=== PATIENT | female | born 1935 | race Caucasian/White ===

== ENCOUNTER 2020-05-27 09:27 | Observation (INO) | payer MEDICARE, BC ==
[2020-05-27] MEDS ORDERED: Furosemide 40 MG/4 ML VIAL IV ONE ×2 (09:48→16:41)
--- NOTE | 2020-05-27 10:11 | EDM.PDOC ---
ED HPI GENERAL MEDICAL PROBLEM - General Time Seen by Provider: 05/27/20 09:45 Source of Information: Reports: Patient History Limitations: Reports: No Limitations - History of Present Illness INITIAL COMMENTS - FREE TEXT/NARRATIVE: Pt. presents to ER with complaints of increased peripheral edema for the past week. Pt. has a history of CAD and chronic systolic CHF, dilated cardiomyopathy, and a-fib. She has a pacemaker/AICD. Pt. states that she was very active last week, doing a lot of doctoring including a lung biopsy last week. She states that she has been having troubles getting he shoes and socks on for about a week. Pt. states that she is chronically short of breath, a bit more than normal. Her primary complaint is swelling in her feet and ankles. Pt. denies any chest pain, palpitations, fever, chills, lightheadedness, weakness, nausea, vomiting or diarrhea. She currently takes furosemide 20mg PO daily. Onset: Today Onset Date: 05/22/20 Location: Reports: Chest, Lower Extremity, Left, Lower Extremity, Right, Generalized Bilateral Feet Pain Score (Numeric/FACES): 5 - Related Data Allergies Allergy/AdvReac Type Severity Reaction Status Date / Time atorvastatin calcium Allergy Itching Verified 05/27/20 10:08 [From Lipitor] Penicillins Allergy Itching Verified 05/27/20 10:08 Home Meds: Home Meds Rosuvastatin Calcium [Crestor] 20 mg PO DAILY 11/27/13 [History] carvediloL [Carvedilol] 25 tab PO BID 11/27/13 [History] lisinopriL [Prinivil] 5 mg PO DAILY 11/27/13 [History] Albuterol Sulfate [Albuterol Sulfate HFA] 2 puff INH Q4H PRN 05/27/20 [History] Aspirin 325 mg PO DAILY 05/27/20 [History] Docusate Sodium [Colace] 100 mg PO DAILY PRN 05/27/20 [History] Fluticasone Furoate [Arnuity Ellipta] 1 puff IH DAILY 05/27/20 [History] Furosemide [Lasix] 20 mg PO DAILY 05/27/20 [History] Ketotifen [Ketotifen 0.025% Ophth Soln] 1 drop EYEBOTH DAILY 05/27/20 [History] Levothyroxine [Synthroid] 88 mcg PO ACBREAKFAST 05/27/20 [History] Multivitamins/Min/Ca/FA/Iron [Thera-M] 1 each PO DAILY 05/27/20 [History] Oxybutynin Chloride [Ditropan Xl] 5 mg PO DAILY 05/27/20 [History] glipiZIDE [Glipizide ER] 2.5 mg PO DAILY 05/27/20 [History] ED ROS GENERAL - Review of Systems Review Of Systems: See Below Constitutional: Reports: No Symptoms HEENT: Reports: No Symptoms Respiratory: Reports: Shortness of Breath Cardiovascular: Reports: Dyspnea on Exertion, Edema Endocrine: Reports: No Symptoms GI/Abdominal: Reports: No Symptoms : Reports: No Symptoms Musculoskeletal: Reports: No Symptoms Skin: Reports: No Symptoms Neurological: Reports: No Symptoms Psychiatric: Reports: No Symptoms Hematologic/Lymphatic: Reports: No Symptoms Immunologic: Reports: No Symptoms ED EXAM, GENERAL - Physical Exam Exam: See Below Exam Limited By: No Limitations General Appearance: Alert, WD/WN, No Apparent Distress Eye Exam: Bilateral Eye: EOMI, Normal Inspection, PERRL Head: Atraumatic, Normocephalic Neck: Normal Inspection, Supple, Non-Tender, Full Range of Motion Respiratory/Chest: No Respiratory Distress, Decreased Breath Sounds Cardiovascular: Normal Peripheral Pulses, Regular Rate, Rhythm Peripheral Pulses: 4+: Radial (L) GI/Abdominal: Soft, Non-Tender, No Distention, No Mass (Female) Exam: Deferred Rectal (Female) Exam: Deferred Neurological: Alert, Oriented, CN II-XII Intact, Normal Cognition, No Motor/Sensory Deficits Psychiatric: Normal Affect, Normal Mood #1 Interpretation EKG Date: 05/27/20 EKG Interpretation Comments: Paced Course - Vital Signs Last Recorded V/S: Last Vital Signs Temp 35.9 C L 05/27/20 09:30 Pulse 90 05/27/20 09:30 Resp 20 05/27/20 09:30 BP 144/75 H 05/27/20 09:30 Pulse Ox 92 L 05/27/20 09:30 - Orders/Labs/Meds Orders: Active Orders 24 hr Category Date Time Status EKG Documentation Completion [RC] STAT Care 05/27/20 09:47 Active INR,PT,PROTHROMBIN TIME [COAG] Stat Lab 05/27/20 09:50 Received Sodium Chloride 0.9% [Saline Flush] Med 05/27/20 09:46 Active 10 ml FLUSH ASDIRECTED PRN Peripheral IV Insertion Adult [OM.PC] Routine Oth 05/27/20 09:47 Ordered Medication Orders Sodium Chloride (Saline Flush) 10 ml FLUSH ASDIRECTED PRN PRN Reason: Keep Vein Open Labs: Laboratory Tests 05/27/20 05/27/20 05/27/20 Range/Units 09:50 09:50 09:50 WBC 6.6 (4.0-10.0) x10^3/uL RBC 3.79 L (4.00-5.50) x10^6/uL Hgb 10.9 L D (12.0-16.0) g/dL Hct 35.2 (33.0-47.0) % MCV 92.9 D (78.0-93.0) fL MCH 28.8 (26.0-32.0) pg MCHC 31.0 L (32.0-36.0) g/dL RDW Coeff of Donna 13.7 (10.0-15.0) % Plt Count 133 (130-400) x10^3/uL Neut % (Auto) 70.7 (50.0-80.0) % Lymph % (Auto) 19.4 L (25.0-50.0) % [place] % (Auto) 7.6 (2.0-11.0) % Eos % (Auto) 1.8 (0.0-4.0) % Baso % (Auto) 0.5 (0.2-1.2) % APTT 24.4 L (25.6-32.8) SEC Sodium 141 (136-145) mmol/L Potassium 4.1 (3.5-5.1) mmol/L Chloride 103 (98-107) mmol/L Carbon Dioxide 31 (21-32) mmol/L Anion Gap 11.1 (5-15) mmol/L BUN 14 (7-18) mg/dL Creatinine 0.9 (0.55-1.02) mg/dL Est Cr Clr Drug Dosing 40.18 mL/min Estimated GFR (MDRD) 60 Glucose 122 H (74-106) mg/dL Calcium 8.9 (8.5-10.1) mg/dL Corrected Calcium 9.46 (8.5-10.1) mg/dL Magnesium 1.7 L (1.8-2.4) mg/dL Total Bilirubin 0.6 (0.2-1.0) mg/dL AST 25 (15-37) U/L ALT 29 (14-59) U/L Alkaline Phosphatase 47 (46-116) U/L Troponin I 0.096 H* (<=0.056) ng/mL NT-Pro-B Natriuret Pep 7579 H (<=450) pg/mL Total Protein 6.8 (6.4-8.2) g/dL Albumin 3.3 L (3.4-5.0) g/dL Globulin 3.5 Albumin/Globulin Ratio 0.94 TSH, Ultra Sensitive 0.351 L (0.358-3.74) uIU/mL Meds: Medications Generic Name Dose Route Start Last Admin Trade Name Freq PRN Reason Stop Dose Admin Sodium Chloride 10 ml 05/27/20 09:46 Saline Flush FLUSH ASDIRECTED PRN Keep Vein Open Discontinued Medications Generic Name Dose Route Start Last Admin Trade Name Freq PRN Reason Stop Dose Admin Furosemide 40 mg 05/27/20 09:48 05/27/20 09:59 Lasix IV 05/27/20 09:49 40 mg ONETIME ONE Administration - Re-Assessments/Exams Free Text/Narrative Re-Assessment/Exam: Pt. was given lasix 40mg IV. Reported some improvement in her symptoms shortly thereafter. Departure - Departure Time of Disposition: 11:20 Disposition: Refer to Observation Clinical Impression: Elevated troponin, CHF exacerbation - Discharge Information Sepsis Event Note (ED) - Focused Exam Vital Signs: Vital Signs Temp Pulse Resp BP Pulse Ox 05/27/20 09:30 35.9 C L 90 20 144/75 H 92 L - Problem List Review Problem List Initiated/Reviewed/Updated: Yes - My Orders Last 24 Hours: My Active Orders 05/27/20 09:46 Sodium Chloride 0.9% [Saline Flush] 10 ml FLUSH ASDIRECTED PRN 05/27/20 09:47 EKG Documentation Completion [RC] STAT Peripheral IV Insertion Adult [OM.PC] Routine 05/27/20 09:50 INR,PT,PROTHROMBIN TIME [COAG] Stat - Assessment/Plan Last 24 Hours: My Active Orders 05/27/20 09:46 Sodium Chloride 0.9% [Saline Flush] 10 ml FLUSH ASDIRECTED PRN 05/27/20 09:47 EKG Documentation Completion [RC] STAT Peripheral IV Insertion Adult [OM.PC] Routine 05/27/20 09:50 INR,PT,PROTHROMBIN TIME [COAG] Stat Plan: Pt. troponin is mildly elevated. EKG is unchanged. She is not having any chest pain. This could be due to increased workload due to CHF exacerbation or it may be chronically elevated due to dilated cardiomyopathy. She will be admitted observation. Continue telemetry. We will trend the patient's troponin. Pt. is a code 1.
[2020-05-27 10:53] LABS: ANION GAP 11.1 mmol/L (5-15)
[2020-05-27] MEDS ORDERED: Docusate Sodium 100 MG Cap PO PRN (11:28)
[2020-05-27] MEDS ORDERED: Albuterol HFA 18 Gm Inhaler INH PRN (12:05)
[2020-05-27] MEDS: Sodium Chloride 0.9% 10 ML Syringe FLUSH PRN ×3 (15:05→19:39)
[2020-05-27] MEDS ORDERED: Furosemide 40 MG/4 ML VIAL IV STA (16:46)
[2020-05-27] MEDS: Carvedilol 25 MG Tab PO SCH (17:11)
[2020-05-28 06:54] VITALS: BP 144/71
[2020-05-28] MEDS ORDERED: Levothyroxine 88 MCG Tab PO SCH (07:00)
[2020-05-28 07:36] VITALS: PULSE 101
[2020-05-28] MEDS: Carvedilol 25 MG Tab PO SCH (07:36)
[2020-05-28] MEDS ORDERED: ROSUVASTATIN CALCIUM 20 MG PO SCH (08:00)
[2020-05-28] MEDS ORDERED: Lisinopril 5 MG Tab PO SCH (08:00)
[2020-05-28] MEDS ORDERED: FLUTICASONE FUROATE IH SCH (08:00)
[2020-05-28] MEDS ORDERED: glipiZIDE 2.5 MG Tab.ER PO SCH (08:00)
[2020-05-28] MEDS ORDERED: Lisinopril 2.5 MG Tab PO SCH (08:00)
[2020-05-28] MEDS ORDERED: Aspirin 325 MG Tab.EC PO SCH (08:00)
[2020-05-28] MEDS ORDERED: Furosemide 40 MG Tab PO SCH (08:00)
[2020-05-28] MEDS ORDERED: Multivitamins with Iron/Calcium/Folic Acid/Minerals Tab PO SCH (08:00)
[2020-05-28] MEDS ORDERED: Oxybutynin 5 MG Tab.ER PO SCH (08:00)
--- NOTE | 2020-05-28 10:24 | PCM.DCSUM1 ---
Discharge Summary - Hospital Course Free Text/Narrative:: Pt. is feeling better today. Her shortness of breath/HOWELL is improving. She has not had any chest pain or palpitations. Troponin was trended, and has been trending downward since yesterday. Telemetry has not indicated any change from baseline EKG. She has had no issues with tachycardia or bradycardia. Pt. is tolerating her diet. She has lost approx. 4 pounds since admission due to diuresis. Denies any fever, chills, abdominal pain, or headache. Diagnosis: Stroke: No - Discharge Data Discharge Date: 05/28/20 Discharge Disposition: Home, Self-Care 01 Condition: Good - Referral to Home Health Primary Care Physician: Cleopatra Villagomez MD - Discharge Diagnosis/Problem(s) (1) CHF exacerbation SNOMED Code(s): 729631807, [id number] ICD Code: I50.9 - HEART FAILURE, UNSPECIFIED Status: Acute Current Visit: Yes (2) Elevated troponin SNOMED Code(s): 953979515, 724682805, [id number] ICD Code: R77.8 - OTHER SPECIFIED ABNORMALITIES OF PLASMA PROTEINS Status: Acute Current Visit: Yes - Patient Instructions Diet: Heart Healthy Diet Activity: As Tolerated Showering/Bathing: August Shower - Discharge Plan Home Medications: Home Meds Rosuvastatin Calcium [Crestor] 20 mg PO DAILY 11/27/13 [History] Albuterol Sulfate [Albuterol Sulfate HFA] 2 puff INH Q4H PRN 05/27/20 [History] Aspirin 325 mg PO DAILY 05/27/20 [History] Docusate Sodium [Colace] 100 mg PO DAILY PRN 05/27/20 [History] Fluticasone Furoate [Arnuity Ellipta] 1 puff IH DAILY 05/27/20 [History] Furosemide [Lasix] 20 mg PO DAILY 05/27/20 [History] Ketotifen [Ketotifen 0.025% Ophth Soln] 1 drop EYEBOTH DAILY 05/27/20 [History] Levothyroxine [Synthroid] 88 mcg PO ACBREAKFAST 05/27/20 [History] Multivitamins/Min/Ca/FA/Iron [Thera-M] 1 each PO DAILY 05/27/20 [History] Non-Formulary Medication [NF Drug] 1 puff INH DAILY 05/27/20 [History] Oxybutynin Chloride [Ditropan Xl] 5 mg PO DAILY 05/27/20 [History] carvediloL [Coreg] 25 mg PO BID 05/27/20 [History] glipiZIDE [Glipizide ER] 2.5 mg PO DAILY 05/27/20 [History] lisinopriL [Lisinopril] 2.5 mg PO DAILY 05/27/20 [History] carvediloL [Coreg] 25 mg PO BIDMEALS tablet 05/28/20 [Rx] Patient Handouts: Furosemide injection, Heart-Healthy Eating Plan, [id number]-[id number], Edema, Troponin Test Forms: ED Department Discharge Referrals: Cleopatra Villagomez MD [Primary Care Provider] - - Discharge Summary/Plan Comment DC Time >30 min.: Yes Discharge Summary/Plan Comment: Lasix was increased to 40mg daily until 06/02. Then decrease back to 20mg daily. It sounds as though the patient did not take her lasix several times this past week, as she had appointments and didn't want to deal with frequent urination. Therefore, we will make her lasix increase temporary and have her follow-up with her PCP after her fluid overload is corrected. Advised to restrict fluids to 1500ml/day. Pt. is wondering how she can improve her chronic shortness of breath. Other than take her medications as directed, she was advised to do some more ambulation to improve exercise tolerance/improve de-conditioning. Return to ER if increased shortness of breath, chest pain, palpitations, or other worrisome signs/symptoms. - General Info Date of Service: 05/28/20 Functional Status: Reports: Pain Controlled - Review of Systems General: Reports: No Symptoms HEENT: Reports: No Symptoms Pulmonary: Reports: No Symptoms Cardiovascular: Reports: No Symptoms Gastrointestinal: Reports: No Symptoms Genitourinary: Reports: No Symptoms Musculoskeletal: Reports: No Symptoms Skin: Reports: No Symptoms Neurological: Reports: No Symptoms Psychiatric: Reports: No Symptoms - Patient Data Vitals - Most Recent: Last Vital Signs Temp 36.1 C 05/28/20 06:53 Pulse 101 H 05/28/20 07:36 Resp 16 05/28/20 06:53 BP 144/71 H 05/28/20 07:36 Pulse Ox 92 L 05/28/20 06:53 Weight - Most Recent: 81.329 kg I&O - Last 24 hours: Intake & Output 05/27/20 05/28/20 05/28/20 22:59 06:59 14:59 Intake Total 600 200 240 Output Total 1650 800 350 Balance -1050 -600 -110 Lab Results - Last 24 hrs: Laboratory Results - last 24 hr 05/27/20 05/27/20 05/27/20 Range/Units 09:50 09:50 09:50 PT 18.9 H (9.9-12.5) SEC INR 1.7 L (2.0-3.5) APTT 24.4 L (25.6-32.8) SEC Sodium 141 (136-145) mmol/L Potassium 4.1 (3.5-5.1) mmol/L Chloride 103 (98-107) mmol/L Carbon Dioxide 31 (21-32) mmol/L Anion Gap 11.1 (5-15) mmol/L BUN 14 (7-18) mg/dL Creatinine 0.9 (0.55-1.02) mg/dL Est Cr Clr Drug Dosing 40.18 mL/min Estimated GFR (MDRD) 60 Glucose 122 H (74-106) mg/dL POC Glucose (74-106) mg/dL Calcium 8.9 (8.5-10.1) mg/dL Corrected Calcium 9.46 (8.5-10.1) mg/dL Magnesium 1.7 L (1.8-2.4) mg/dL Total Bilirubin 0.6 (0.2-1.0) mg/dL AST 25 (15-37) U/L ALT 29 (14-59) U/L Alkaline Phosphatase 47 (46-116) U/L Troponin I 0.096 H* (<=0.056) ng/mL NT-Pro-B Natriuret Pep 7579 H (<=450) pg/mL Total Protein 6.8 (6.4-8.2) g/dL Albumin 3.3 L (3.4-5.0) g/dL Globulin 3.5 Albumin/Globulin Ratio 0.94 TSH, Ultra Sensitive 0.351 L (0.358-3.74) uIU/mL SARS CoV-2 RNA Rapid JEAN PIERRE (NEGATIVE) 05/27/20 05/27/20 05/27/20 Range/Units 11:35 15:58 20:15 PT (9.9-12.5) SEC INR (2.0-3.5) APTT (25.6-32.8) SEC Sodium (136-145) mmol/L Potassium (3.5-5.1) mmol/L Chloride (98-107) mmol/L Carbon Dioxide (21-32) mmol/L Anion Gap (5-15) mmol/L BUN (7-18) mg/dL Creatinine (0.55-1.02) mg/dL Est Cr Clr Drug Dosing mL/min Estimated GFR (MDRD) Glucose (74-106) mg/dL POC Glucose (74-106) mg/dL Calcium (8.5-10.1) mg/dL Corrected Calcium (8.5-10.1) mg/dL Magnesium (1.8-2.4) mg/dL Total Bilirubin (0.2-1.0) mg/dL AST (15-37) U/L ALT (14-59) U/L Alkaline Phosphatase (46-116) U/L Troponin I 0.142 H* 0.122 H* (<=0.056) ng/mL NT-Pro-B Natriuret Pep (<=450) pg/mL Total Protein (6.4-8.2) g/dL Albumin (3.4-5.0) g/dL Globulin Albumin/Globulin Ratio TSH, Ultra Sensitive (0.358-3.74) uIU/mL SARS CoV-2 RNA Rapid JEAN PIERRE Negative (NEGATIVE) 05/28/20 05/28/20 Range/Units 06:41 07:24 PT (9.9-12.5) SEC INR (2.0-3.5) APTT (25.6-32.8) SEC Sodium (136-145) mmol/L Potassium (3.5-5.1) mmol/L Chloride (98-107) mmol/L Carbon Dioxide (21-32) mmol/L Anion Gap (5-15) mmol/L BUN (7-18) mg/dL Creatinine (0.55-1.02) mg/dL Est Cr Clr Drug Dosing mL/min Estimated GFR (MDRD) Glucose (74-106) mg/dL POC Glucose 87 (74-106) mg/dL Calcium (8.5-10.1) mg/dL Corrected Calcium (8.5-10.1) mg/dL Magnesium (1.8-2.4) mg/dL Total Bilirubin (0.2-1.0) mg/dL AST (15-37) U/L ALT (14-59) U/L Alkaline Phosphatase (46-116) U/L Troponin I 0.109 H* (<=0.056) ng/mL NT-Pro-B Natriuret Pep (<=450) pg/mL Total Protein (6.4-8.2) g/dL Albumin (3.4-5.0) g/dL Globulin Albumin/Globulin Ratio TSH, Ultra Sensitive (0.358-3.74) uIU/mL SARS CoV-2 RNA Rapid JEAN PIERRE (NEGATIVE) Med Orders - Current: Current Medications Albuterol (Ventolin Hfa) 0 gm INH Q4H PRN PRN Reason: Dyspnea Aspirin (Ecotrin) 325 mg PO DAILY [facility] Last Admin: 05/28/20 07:36 Dose: 325 mg Documented by: Carvedilol (Coreg) 25 mg PO BIDMEALS [facility] Last Admin: 05/28/20 07:36 Dose: 25 mg Documented by: Docusate Sodium (Colace) 100 mg PO DAILY PRN PRN Reason: Constipation Furosemide (Lasix) 40 mg PO DAILY [facility] Last Admin: 05/28/20 07:36 Dose: 40 mg Documented by: Glipizide (Glucotrol Xl) 2.5 mg PO DAILY [facility] Last Admin: 05/28/20 07:36 Dose: 2.5 mg Documented by: Levothyroxine Sodium (Synthroid) 88 mcg PO ACBREAKFAST [facility] Last Admin: 05/28/20 06:45 Dose: 88 mcg Documented by: Lisinopril (Prinivil) 2.5 mg PO DAILY [facility] Last Admin: 05/28/20 07:35 Dose: 2.5 mg Documented by: Multivitamins/Minerals (Thera M Plus) 1 tab PO DAILY [facility] Last Admin: 05/28/20 07:36 Dose: 1 tab Documented by: Oxybutynin Chloride (Oxybutynin Er) 5 mg PO DAILY [facility] Last Admin: 05/28/20 07:36 Dose: 5 mg Documented by: Sodium Chloride (Saline Flush) 10 ml FLUSH ASDIRECTED PRN PRN Reason: Keep Vein Open Last Admin: 05/27/20 19:39 Dose: 10 ml Documented by: Discontinued Medications Furosemide (Lasix) 40 mg IV ONETIME ONE Stop: 05/27/20 09:49 Last Admin: 05/27/20 09:59 Dose: 40 mg Documented by: Furosemide (Lasix) 40 mg IV ONETIME ONE Stop: 05/27/20 16:42 Last Admin: 05/27/20 16:47 Dose: Not Given Documented by: Furosemide (Lasix) 40 mg IV ONETIME STA Stop: 05/27/20 16:47 Last Admin: 05/27/20 17:11 Dose: 40 mg Documented by: Lisinopril (Prinivil) 5 mg PO DAILY [place] Non-Formulary Medication (Fluticasone Furoate [Arnuity Ellipta]) 1 puff IH DAILY [place] Non-Formulary Medication (Rosuvastatin Calcium [Crestor]) 20 mg PO DAILY [place] - Exam General: Reports: Alert, Oriented HEENT: Reports: Pupils Equal, Pupils Reactive, EOMI, Mucous Membr. Moist/[place]: Reports: Supple Lungs: Reports: Clear to Auscultation, Normal Respiratory Effort Cardiovascular: Reports: Regular Rate, Regular Rhythm GI/Abdominal Exam: Normal Bowel Sounds, Soft, Non-Tender, No Distention, No Mass (Female) Exam: Deferred Rectal (Female) Exam: Deferred Back Exam: Reports: Normal Inspection, Full Range of Motion Extremities: Normal Inspection, Normal Range of Motion, Non-Tender, No Pedal Edema, Normal Capillary Refill Skin: Reports: Warm, Dry, Intact Neurological: Reports: No New Focal Deficit Psy/Mental Status: Reports: Alert, Normal Affect, Normal Mood
== END 2020-05-28 09:56 | disposition home or self-care (01) ==
LOC: VM.ED 09:27 → VM.MS 10:57
PROVIDERS: ADMIT Physician Assistant; ATTEND Physician Assistant
DX: I50.22 Chronic systolic (congestive) heart failure (principal); R60.9 Edema, unspecified; R77.8 Other specified abnormalities of plasma proteins; Z20.822 Contact with and (suspected) exposure to COVID-19; I25.10 Atherosclerotic heart disease of native coronary artery without angina pectoris; I42.0 Dilated cardiomyopathy; Z79.82 Long term (current) use of aspirin; Z79.890 Hormone replacement therapy; Z79.899 Other long term (current) drug therapy; Z88.0 Allergy status to penicillin; Z88.8 Allergy status to other drugs, medicaments and biological substances
CPT/HCPCS: 36415; 80053; 82962; 83735; 83880; 84443; 84484; 85025; 85610; 85730; 93005; 93010; 96374; 96376; 99217; 99220; 99285-25; A9270-GY; G0378; J1940; U0002

== ENCOUNTER 2020-06-09 13:34 | Emergency (ER) | payer MEDICARE, BC ==
--- NOTE | 2020-06-09 14:13 | EDM.PDOC ---
ED HPI GENERAL MEDICAL PROBLEM - General Chief Complaint: Syncope Stated Complaint: hypotension Time Seen by Provider: 06/09/20 13:55 Source of Information: Reports: Patient History Limitations: Reports: No Limitations - History of Present Illness INITIAL COMMENTS - FREE TEXT/NARRATIVE: Alex is an 85 year old female who presents to ER with concerns with hypotension. She went to the clinic today for her routine physical. States was "a little lightheaded" and they checked her blood pressure and relate that it was 60/30. She denies any chest pain. Feels mildly short of breath but denies that is a change from her norm. Had been here 2 weeks ago with increased edema. Was given IV Lasix and increased her Lasix for 5 days while at home. Had not been taking her usual dose due to "multiple appointments and not wanting to be constantly urinating so likely fluid built up". Admits felt better after the IV Lasix even. Has otherwise been feeling good. Edema in her legs has improved. While here in the ER, blood pressure was normal. Feels good while lying down. Nurse did check orthostatic blood pressures and systolic did go down in the 90s while standing. Onset: Today, Sudden Duration: Minutes:, Improving Location: Reports: Generalized Improves with: Reports: Rest - Related Data Allergies Allergy/AdvReac Type Severity Reaction Status Date / Time atorvastatin calcium Allergy Itching Verified 05/27/20 10:08 [From Lipitor] Penicillins Allergy Itching Verified 05/27/20 10:08 Home Meds: Home Meds Rosuvastatin Calcium [Crestor] 20 mg PO DAILY 11/27/13 [History] Albuterol Sulfate [Albuterol Sulfate HFA] 2 puff INH Q4H PRN 05/27/20 [History] Aspirin 325 mg PO DAILY 05/27/20 [History] Docusate Sodium [Colace] 100 mg PO DAILY PRN 05/27/20 [History] Fluticasone Furoate [Arnuity Ellipta] 1 puff IH DAILY 05/27/20 [History] Furosemide [Lasix] 20 mg PO DAILY 05/27/20 [History] Ketotifen [Ketotifen 0.025% Ophth Soln] 1 drop EYEBOTH DAILY 05/27/20 [History] Levothyroxine [Synthroid] 88 mcg PO ACBREAKFAST 05/27/20 [History] Multivitamins/Min/Ca/FA/Iron [Thera-M] 1 each PO DAILY 05/27/20 [History] Non-Formulary Medication [NF Drug] 1 puff INH DAILY 05/27/20 [History] Oxybutynin Chloride [Ditropan Xl] 5 mg PO DAILY 05/27/20 [History] carvediloL [Coreg] 25 mg PO BID 05/27/20 [History] glipiZIDE [Glipizide ER] 2.5 mg PO DAILY 05/27/20 [History] lisinopriL [Lisinopril] 2.5 mg PO DAILY 05/27/20 [History] carvediloL [Coreg] 25 mg PO BIDMEALS tablet 05/28/20 [Rx] Past Medical History HEENT History: Reports: Allergic Rhinitis, Other (See Below) Other HEENT History: Presbyopia Cardiovascular History: Reports: Afib, Aneurysm, Automatic Implantable Cardioverter Defibrillators, CAD, Cardiomyopathy, Heart Failure, High Cholesterol, Hypertension, Pacemaker, Other (See Below) Other Cardiovascular History: Venous hypertension of upper extremity, AV fistula in left arm, bundle branch block, varicose veins, valvular heart disease, bilateral carotid artery stenosis Respiratory History: Reports: COPD, Sleep Apnea, Other (See Below) Other Respiratory History: Nodule - left and right lung Gastrointestinal History: Reports: Diverticulosis, GERD, Other (See Below) Other Gastrointestinal History: Pancreatic abscess Genitourinary History: Reports: Chronic Renal Insuffiency, Urinary Incontinence 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 Musculoskeletal History: Reports: Osteoporosis, Other (See Below) Other Musculoskeletal History: pain in joint, pelvic region and thigh; chrnoic pain of right knee, right hip pain, tendinitis in right hip abductors; cramps Neurological History: Reports: Vertigo, Other (See Below) Other Neuro History: Daytime sleepiness Psychiatric History: Reports: None Endocrine/Metabolic History: Reports: Diabetes, Type II, Hyperparathyroidism, Hypothyroidism, Multinodular Thyroid, Obesity/BMI 30+, Osteoporosis, Vitamin D Deficiency, Other (See Below) Other Endocrine/Metabolic History: Hypercalcemia Other Hematologic History: Factor VII deficiency Immunologic History: Reports: None Oncologic (Cancer) History: Reports: Lung, Thyroid Dermatologic History: Reports: Other (See Below) Other Dermatologic History: Callus of foot - Infectious Disease History Infectious Disease History: Reports: C-Difficile - Past Surgical History HEENT Surgical History: Reports: Cataract Surgery, Other (See Below) Other HEENT Surgeries/Procedures: Blepharoplasty upper eyelid, yag capsulotomy right eye Cardiovascular Surgical History: Reports: AICD, Coronary Artery Bypass, Pacer, Other (See Below) Other Cardiovascular Surgeries/Procedures: Cardiac catheterization, angiogram, IR embolization of left chest wall AV fistula Respiratory Surgical History: Reports: Lung Biopsies, Lung Resection GI Surgical History: Reports: Colonoscopy Female Surgical History: Reports: Breast Biopsy, Section, Hysterectomy, Salpingo-Oophorectomy Endocrine Surgical History: Reports: Thyroidectomy Neurological Surgical History: Reports: None Musculoskeletal Surgical History: Reports: None Oncologic Surgical History: Reports: Biopsy of Breast, Lobectomy Dermatological Surgical History: Reports: None Social & Family History - Tobacco Use Tobacco Use Status *Q: Unknown Ever Used Tobacco ED ROS GENERAL - Review of Systems Review Of Systems: See Below Constitutional: Denies: Fever, Chills, Malaise, Weakness, Fatigue HEENT: Denies: Ear Pain, Throat Pain, Vertigo, Vision Change Respiratory: Reports: Shortness of Breath. Denies: Cough Cardiovascular: Reports: Edema, Lightheadedness. Denies: Chest Pain Endocrine: Denies: Fatigue GI/Abdominal: Denies: Abdominal Pain, Constipation, Diarrhea, Nausea, Vomiting : Denies: Dysuria Musculoskeletal: Reports: No Symptoms Skin: Reports: No Symptoms Neurological: Denies: Syncope, Weakness - Physical Exam Exam: See Below Exam Limited By: No Limitations General Appearance: Alert, WD/WN, No Apparent Distress Ears: Normal External Exam, Normal TMs Nose: Normal Inspection, Normal Mucosa, No Blood Throat/Mouth: Normal Inspection, Normal Oropharynx Head Exam: Normocephalic Neck: Normal Inspection, Supple, Non-Tender Respiratory/Chest: No Respiratory Distress, Lungs Clear, Normal Breath Sounds Cardiovascular: Regular Rate, Rhythm GI/Abdominal: Normal Bowel Sounds, Soft, Non-Tender Neuro Exam (Abbreviated): Alert, Oriented Extremities: Normal Inspection, Pedal Edema (1+) Skin Exam: Warm, Dry Course - Orders/Labs/Meds Orders: Active Orders 24 hr Category Date Time Status EKG 12 Lead [EKG Documentation Completion] [RC] ROUTINE Care 06/09/20 14:03 Active Chest 2V [CR] Stat Exams 06/09/20 14:00 Taken Sodium Chloride 0.9% [Normal Saline] 1,000 ml Med 06/09/20 14:15 Active IV ASDIRECTED Medication Orders Sodium Chloride (Normal Saline) 1,000 mls @ 75 mls/hr IV ASDIRECTED [place] Labs: Laboratory Tests 06/09/20 06/09/20 Range/Units 13:55 13:55 WBC 7.0 (4.0-10.0) x10^3/uL RBC 4.27 (4.00-5.50) x10^6/uL Hgb 12.4 D (12.0-16.0) g/dL Hct 38.7 (33.0-47.0) % MCV 90.6 (78.0-93.0) fL MCH 29.0 (26.0-32.0) pg MCHC 32.0 (32.0-36.0) g/dL RDW Coeff of Donna 13.9 (10.0-15.0) % Plt Count 164 (130-400) x10^3/uL Neut % (Auto) 79.2 (50.0-80.0) % Lymph % (Auto) 11.0 L (25.0-50.0) % [place] % (Auto) 8.4 (2.0-11.0) % Eos % (Auto) 1.0 (0.0-4.0) % Baso % (Auto) 0.4 (0.2-1.2) % Sodium 135 L (136-145) mmol/L Potassium 3.8 (3.5-5.1) mmol/L Chloride 96 L (98-107) mmol/L Carbon Dioxide 33 H (21-32) mmol/L Anion Gap 9.8 (5-15) mmol/L BUN 15 (7-18) mg/dL Creatinine 1.3 H (0.55-1.02) mg/dL Est Cr Clr Drug Dosing TNP Estimated GFR (MDRD) 39 Glucose 119 H (74-106) mg/dL Calcium 9.2 (8.5-10.1) mg/dL Corrected Calcium 9.52 (8.5-10.1) mg/dL Total Bilirubin 0.9 (0.2-1.0) mg/dL AST 25 (15-37) U/L ALT 28 (14-59) U/L Alkaline Phosphatase 53 (46-116) U/L Troponin I High Sens 13 (<=51) ng/L NT-Pro-B Natriuret Pep 5857 H (<=450) pg/mL Total Protein 7.5 (6.4-8.2) g/dL Albumin 3.6 (3.4-5.0) g/dL Globulin 3.9 Albumin/Globulin Ratio 0.92 Meds: Medications Generic Name Dose Route Start Last Admin Trade Name Seema PRN Reason Stop Dose Admin Sodium Chloride 1,000 mls @ 75 mls/hr 06/09/20 14:15 Normal Saline IV ASDIRECTED [place] - Re-Assessments/Exams Free Text/Narrative Re-Assessment/Exam: 06/09/20 14:57 Labs show mild change in creatinine, IV fluids given as a result of near syncope and elevated creatinine. Patient up and ambulating in quiroz, no lightheadedness. Blood pressure 95/63. Contacted Dr. Villagomez, patient's primary care provider, with status. Will decrease her Lasix to 10 mg daily. Follow up for her physical in next 1-2 weeks. Recheck sooner if becomes lightheaded or has changes. Departure - Departure Time of Disposition: 15:02 Disposition: Home, Self-Care 01 Condition: Good Clinical Impression: Orthostatic hypotension - Discharge Information *PRESCRIPTION DRUG MONITORING PROGRAM REVIEWED*: No *COPY OF PRESCRIPTION DRUG MONITORING REPORT IN PATIENT ARLENE: No Instructions: Hypotension, [id number], Near-Syncope, [id number] Forms: ED Department Discharge Additional Instructions: 1. Push fluids 2. Slow, cautious movements 3. Decrease Lasix to 10 mg (1/2 tab) daily 4. Follow up with Dr. Villagomez 1-2 weeks for physical. If lightheaded or low blood pressure, follow up sooner - My Orders Last 24 Hours: My Active Orders 06/09/20 14:00 Chest 2V [CR] Stat 06/09/20 14:03 EKG 12 Lead [EKG Documentation Completion] [RC] ROUTINE 06/09/20 14:15 Sodium Chloride 0.9% [Normal Saline] 1,000 ml IV ASDIRECTED - Assessment/Plan Last 24 Hours: My Active Orders 06/09/20 14:00 Chest 2V [CR] Stat 06/09/20 14:03 EKG 12 Lead [EKG Documentation Completion] [RC] ROUTINE 06/09/20 14:15 Sodium Chloride 0.9% [Normal Saline] 1,000 ml IV ASDIRECTED
[2020-06-09] MEDS ORDERED: Sodium Chloride 0.9% 1,000 ML IV SCH (14:15)
[2020-06-09 14:38] LABS: CHLORIDE,CL 96 mmol/L (98-107); SODIUM,NA 135 mmol/L (136-145)
[2020-06-09 14:48] LABS: ANION GAP 9.8 mmol/L (5-15)
--- NOTE | 2020-06-09 16:51 | CR ---
[id number] RAD/RAD Chest PA And Lateral EXAM: RAD Chest PA And Lateral INDICATION: LIGHTHEADED/HYPOTENSIVE. COMPARISON: None. DISCUSSION: Cardiomediastinal silhouette is increased but stable. 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 Numerous surgical clips along the right medial neck and mediastinum. Pulmonary hyperinflation. No pneumothorax or pleural effusion. No definite pulmonary infiltrate. Overall findings appear similar to the cryptoanalysis teacher image from CT scan of April 28, 2020. IMPRESSION: No definite acute cardiopulmonary findings. Isael Brito DO 06/09/20 1024 Thank you for allowing us to participate in the care of your patient.
[2020-06-09 21:31] VITALS: BP 103/53; PULSE 74
== END 2020-06-09 15:40 | disposition home or self-care (01) ==
LOC: VM.ED 13:34
DX: I95.1 Orthostatic hypotension (principal); I48.91 Unspecified atrial fibrillation; I25.10 Atherosclerotic heart disease of native coronary artery without angina pectoris; I13.0 Hypertensive heart and chronic kidney disease with heart failure and stage 1 through stage 4 chronic kidney disease, or unspecified chronic kidney disease; I50.9 Heart failure, unspecified; E11.22 Type 2 diabetes mellitus with diabetic chronic kidney disease; N18.9 Chronic kidney disease, unspecified; E78.00 Pure hypercholesterolemia, unspecified; J44.9 Chronic obstructive pulmonary disease, unspecified; Z88.8 Allergy status to other drugs, medicaments and biological substances; Z88.0 Allergy status to penicillin; E03.9 Hypothyroidism, unspecified; E66.9 Obesity, unspecified; Z68.28 Body mass index [BMI] 28.0-28.9, adult; Z79.82 Long term (current) use of aspirin; Z79.899 Other long term (current) drug therapy
CPT/HCPCS: 71046; 80053; 83880; 84484; 85025; 93005; 99284; 99285-25; J7030

== ENCOUNTER 2021-03-25 13:08 | Emergency (ER) | payer MEDICARE, BC ==
[2021-03-25] MEDS ORDERED: Sodium Chloride 0.9% 10 ML Syringe FLUSH PRN (13:32)
[2021-03-25 13:58] VITALS: BP 109/67; PULSE 90
[2021-03-25 14:23] LABS: ANION GAP 6.6 mmol/L (5-15)
--- NOTE | 2021-03-25 15:04 | EDM.PDOC ---
ED HPI GENERAL MEDICAL PROBLEM - General Chief Complaint: Cardiovascular Problem Stated Complaint: SWOLLEN FEET/ANKLES Time Seen by Provider: 03/25/21 13:42 Source of Information: Reports: Patient History Limitations: Reports: No Limitations - History of Present Illness INITIAL COMMENTS - FREE TEXT/NARRATIVE: Pt. presents to ER with complaints of increased pedal edema. She states that she has noticed increased swelling over the past week. Denies any increased shortness of breath. She is on home O2. She states that she has chronic dyspnea, but states that it is not worse than normal. Denies any chest pain. No palpitations. No nausea, vomiting, fever, chills, or cough. No diarrhea. No melena, hematochezia, or hematemesis. Pt. has a history of systolic CHF, dilated cardiomyopathy, and paroxysmal atrial fibrillation. Onset: Today Onset Date: 03/25/21 Location: Reports: Lower Extremity, Left, Lower Extremity, Right - Related Data Allergies Allergy/AdvReac Type Severity Reaction Status Date / Time atorvastatin calcium Allergy Itching Verified 06/09/20 21:08 [From Lipitor] Penicillins Allergy Itching Verified 06/09/20 21:08 Home Meds: Home Meds Rosuvastatin Calcium [Crestor] 20 mg PO DAILY 11/27/13 [History] Albuterol Sulfate [Albuterol Sulfate HFA] 2 puff INH Q4H PRN 05/27/20 [History] Aspirin 325 mg PO DAILY 05/27/20 [History] Docusate Sodium [Colace] 100 mg PO DAILY PRN 05/27/20 [History] Fluticasone Furoate [Arnuity Ellipta] 1 puff IH DAILY 05/27/20 [History] Furosemide [Lasix] 30 mg PO DAILY 05/27/20 [History] Ketotifen [Ketotifen 0.025% Ophth Soln] 1 drop EYEBOTH DAILY 05/27/20 [History] Levothyroxine [Synthroid] 88 mcg PO ACBREAKFAST 05/27/20 [History] Multivitamins/Min/Ca/FA/Iron [Thera-M] 1 each PO DAILY 05/27/20 [History] Non-Formulary Medication [NF Drug] 1 puff INH DAILY 05/27/20 [History] Oxybutynin Chloride [Ditropan Xl] 5 mg PO DAILY 05/27/20 [History] carvediloL [Coreg] 25 mg PO BID 05/27/20 [History] glipiZIDE [Glipizide ER] 2.5 mg PO DAILY 05/27/20 [History] lisinopriL [Lisinopril] 2.5 mg PO DAILY 05/27/20 [History] carvediloL [Coreg] 25 mg PO BIDMEALS tablet 05/28/20 [Rx] Past Medical History HEENT History: Reports: Allergic Rhinitis, Other (See Below) Other HEENT History: Presbyopia Cardiovascular History: Reports: Afib, Aneurysm, Automatic Implantable Cardioverter Defibrillators, CAD, Cardiomyopathy, Heart Failure, High Cholesterol, Hypertension, Pacemaker, Other (See Below) Other Cardiovascular History: Venous hypertension of upper extremity, AV fistula in left arm, bundle branch block, varicose veins, valvular heart disease, bilateral carotid artery stenosis Respiratory History: Reports: COPD, Sleep Apnea, Other (See Below) Other Respiratory History: Nodule - left and right lung Gastrointestinal History: Reports: Diverticulosis, GERD, Other (See Below) Other Gastrointestinal History: Pancreatic abscess Genitourinary History: Reports: Chronic Renal Insuffiency, Urinary Incontinence 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 Musculoskeletal History: Reports: Osteoporosis, Other (See Below) Other Musculoskeletal History: pain in joint, pelvic region and thigh; chrnoic pain of right knee, right hip pain, tendinitis in right hip abductors; cramps Neurological History: Reports: Vertigo, Other (See Below) Other Neuro History: Daytime sleepiness Psychiatric History: Reports: None Endocrine/Metabolic History: Reports: Diabetes, Type II, Hyperparathyroidism, Hypothyroidism, Multinodular Thyroid, Obesity/BMI 30+, Osteoporosis, Vitamin D Deficiency, Other (See Below) Other Endocrine/Metabolic History: Hypercalcemia Other Hematologic History: Factor VII deficiency Immunologic History: Reports: None Oncologic (Cancer) History: Reports: Lung, Thyroid Dermatologic History: Reports: Other (See Below) Other Dermatologic History: Callus of foot - Infectious Disease History Infectious Disease History: Reports: C-Difficile - Past Surgical History HEENT Surgical History: Reports: Cataract Surgery, Other (See Below) Other HEENT Surgeries/Procedures: Blepharoplasty upper eyelid, yag capsulotomy right eye Cardiovascular Surgical History: Reports: AICD, Coronary Artery Bypass, Pacer, Other (See Below) Other Cardiovascular Surgeries/Procedures: Cardiac catheterization, angiogram, IR embolization of left chest wall AV fistula Respiratory Surgical History: Reports: Lung Biopsies, Lung Resection GI Surgical History: Reports: Colonoscopy Female Surgical History: Reports: Breast Biopsy, Section, Hysterectomy, Salpingo-Oophorectomy Endocrine Surgical History: Reports: Thyroidectomy Neurological Surgical History: Reports: None Musculoskeletal Surgical History: Reports: None Oncologic Surgical History: Reports: Biopsy of Breast, Lobectomy Dermatological Surgical History: Reports: None Social & Family History - Tobacco Use Tobacco Use Status *Q: Never Tobacco User - Recreational Drug Use Recreational Drug Use: No ED ROS GENERAL - Review of Systems Review Of Systems: See Below Constitutional: Reports: No Symptoms HEENT: Reports: No Symptoms Respiratory: Reports: No Symptoms Cardiovascular: Reports: Edema. Denies: Chest Pain, Dyspnea on Exertion, Lightheadedness, Orthopnea, Palpitations, PND, Syncope Endocrine: Reports: No Symptoms GI/Abdominal: Reports: No Symptoms : Reports: No Symptoms Musculoskeletal: Reports: No Symptoms Skin: Reports: No Symptoms Neurological: Reports: No Symptoms Psychiatric: Reports: No Symptoms Hematologic/Lymphatic: Reports: No Symptoms Immunologic: Reports: No Symptoms ED EXAM, GENERAL - Physical Exam Exam: See Below Exam Limited By: No Limitations General Appearance: Alert, WD/WN, No Apparent Distress Respiratory/Chest: No Respiratory Distress, Lungs Clear, Normal Breath Sounds, No Accessory Muscle Use, Chest Non-Tender Cardiovascular: Irregularly Irregular, Other (2+ edema to feet) Peripheral Pulses: 4+: Radial (L) GI/Abdominal: Soft, Non-Tender, No Distention, No Mass (Female) Exam: Deferred Rectal (Female) Exam: Deferred Back Exam: Normal Inspection, Full Range of Motion Extremities: Normal Inspection, Normal Range of Motion, No Pedal Edema, Normal Capillary Refill Neurological: Alert, Oriented, CN II-XII Intact, Normal Cognition, Normal Reflexes, No Motor/Sensory Deficits Psychiatric: Normal Affect, Normal Mood Skin Exam: Warm, Dry, Intact, No Rash, Pallor Course - Vital Signs Last Recorded V/S: Last Vital Signs Temp 37.0 C 03/25/21 13:42 Pulse 90 03/25/21 13:42 Resp 19 03/25/21 13:42 BP 109/67 03/25/21 13:42 Pulse Ox 92 L 03/25/21 13:42 - Orders/Labs/Meds Orders: Active Orders 24 hr Category Date Time Status Peripheral IV Insertion Adult [OM.PC] Routine Oth 03/25/21 13:32 Ordered Labs: Laboratory Tests 03/25/21 03/25/21 03/25/21 Range/Units 13:43 13:43 13:43 WBC 5.5 (4.0-10.0) x10^3/uL RBC 3.94 L (4.00-5.50) x10^6/uL Hgb 11.6 L (12.0-16.0) g/dL Hct 36.7 (33.0-47.0) % MCV 93.1 H (78.0-93.0) fL MCH 29.4 (26.0-32.0) pg MCHC 31.6 L (32.0-36.0) g/dL RDW Coeff of Donna 15.8 H (10.0-15.0) % Plt Count 141 (130-400) x10^3/uL Immature Gran % (Auto) 0.20 (0.00-0.43) % Neut % (Auto) 76.0 (50.0-80.0) % Lymph % (Auto) 14.9 L (25.0-50.0) % [place] % (Auto) 8.0 (2.0-11.0) % Eos % (Auto) 0.5 (0.0-4.0) % Baso % (Auto) 0.4 (0.2-1.2) % Neut # (Auto) 4.2 (1.8-7.7) x10^3/uL Lymph # (Auto) 0.8 L (1.0-4.8) x10^3/uL [place] # (Auto) 0.4 (0.0-0.8) x10^3/uL Eos # (Auto) 0.0 (0.0-0.5) x10^3/uL Baso # (Auto) 0.0 (0.0-0.2) x10^3/uL Immature Gran # (Auto) 0.01 (0.00-0.07) x10^3/uL PT 21.8 H (9.9-12.5) SEC INR 2.0 (2.0-3.5) APTT (25.6-32.8) SEC Sodium 138 (136-145) mmol/L Potassium 4.6 (3.5-5.1) mmol/L Chloride 99 (98-107) mmol/L Carbon Dioxide 37 H (21-32) mmol/L Anion Gap 6.6 (5-15) mmol/L BUN 17 (7-18) mg/dL Creatinine 1.0 (0.55-1.02) mg/dL Est Cr Clr Drug Dosing 35.52 mL/min Estimated GFR (MDRD) 53 Glucose 171 H (70-99) mg/dL Calcium 9.1 (8.5-10.1) mg/dL Corrected Calcium 9.9 (8.5-10.1) mg/dL Phosphorus 4.0 (2.6-4.7) mg/dL Magnesium 1.9 (1.8-2.4) mg/dL Total Bilirubin 1.1 H (0.2-1.0) mg/dL AST 26 (15-37) U/L ALT 26 (14-59) U/L Alkaline Phosphatase 66 (46-116) U/L Troponin I High Sens 13 (<=51) ng/L NT-Pro-B Natriuret Pep (<=450) pg/mL Total Protein 6.3 L (6.4-8.2) g/dL Albumin 3.0 L (3.4-5.0) g/dL Globulin 3.3 Albumin/Globulin Ratio 0.91 03/25/21 03/25/21 Range/Units 13:43 13:43 WBC (4.0-10.0) x10^3/uL RBC (4.00-5.50) x10^6/uL Hgb (12.0-16.0) g/dL Hct (33.0-47.0) % MCV (78.0-93.0) fL MCH (26.0-32.0) pg MCHC (32.0-36.0) g/dL RDW Coeff of Donna (10.0-15.0) % Plt Count (130-400) x10^3/uL Immature Gran % (Auto) (0.00-0.43) % Neut % (Auto) (50.0-80.0) % Lymph % (Auto) (25.0-50.0) % [place] % (Auto) (2.0-11.0) % Eos % (Auto) (0.0-4.0) % Baso % (Auto) (0.2-1.2) % Neut # (Auto) (1.8-7.7) x10^3/uL Lymph # (Auto) (1.0-4.8) x10^3/uL [place] # (Auto) (0.0-0.8) x10^3/uL Eos # (Auto) (0.0-0.5) x10^3/uL Baso # (Auto) (0.0-0.2) x10^3/uL Immature Gran # (Auto) (0.00-0.07) x10^3/uL PT (9.9-12.5) SEC INR (2.0-3.5) APTT 26.0 (25.6-32.8) SEC Sodium (136-145) mmol/L Potassium (3.5-5.1) mmol/L Chloride (98-107) mmol/L Carbon Dioxide (21-32) mmol/L Anion Gap (5-15) mmol/L BUN (7-18) mg/dL Creatinine (0.55-1.02) mg/dL Est Cr Clr Drug Dosing mL/min Estimated GFR (MDRD) Glucose (70-99) mg/dL Calcium (8.5-10.1) mg/dL Corrected Calcium (8.5-10.1) mg/dL Phosphorus (2.6-4.7) mg/dL Magnesium (1.8-2.4) mg/dL Total Bilirubin (0.2-1.0) mg/dL AST (15-37) U/L ALT (14-59) U/L Alkaline Phosphatase (46-116) U/L Troponin I High Sens (<=51) ng/L NT-Pro-B Natriuret Pep 4932 H (<=450) pg/mL Total Protein (6.4-8.2) g/dL Albumin (3.4-5.0) g/dL Globulin Albumin/Globulin Ratio Meds: Medications Discontinued Medications Generic Name Dose Route Start Last Admin Trade Name Freq PRN Reason Stop Dose Admin Sodium Chloride 10 ml 03/25/21 13:32 Sodium Chloride 0.9% 10 Ml Syringe FLUSH ASDIRECTED PRN Keep Vein Open Departure - Departure Time of Disposition: 15:30 Disposition: Home, Self-Care 01 Clinical Impression: CHF (congestive heart failure), Peripheral edema Instructions: Heart Failure, Self Care, Heart Failure Exacerbation Referrals: Cleopatra Villagomez MD [Primary Care Provider] - Forms: ED Department Discharge Additional Instructions: Increase lasix take a total of 2 tabets (40mg) once daily for a week. Recheck with lab in 7-10 days I suggest wearing JUAN hose as well. Sepsis Event Note (ED) - Evaluation Sepsis Screening Result: No Definite Risk - Focused Exam Vital Signs: Vital Signs Temp Pulse Resp BP Pulse Ox 03/25/21 13:42 37.0 C 90 19 109/67 92 L - Problem List Review Problem List Initiated/Reviewed/Updated: Yes - My Orders Last 24 Hours: My Active Orders 03/25/21 13:32 Peripheral IV Insertion Adult [OM.PC] Routine - Assessment/Plan Last 24 Hours: My Active Orders 03/25/21 13:32 Peripheral IV Insertion Adult [OM.PC] Routine Plan: Increase lasix take a total of 2 tabets (40mg) once daily for a week. Recheck with lab in 7-10 days I suggest wearing JUAN hose as well.
== END 2021-03-25 14:20 | disposition home or self-care (01) ==
LOC: VM.ED 13:08
DX: I13.0 Hypertensive heart and chronic kidney disease with heart failure and stage 1 through stage 4 chronic kidney disease, or unspecified chronic kidney disease (principal); E11.22 Type 2 diabetes mellitus with diabetic chronic kidney disease; N18.9 Chronic kidney disease, unspecified; I50.9 Heart failure, unspecified; I48.91 Unspecified atrial fibrillation; J44.9 Chronic obstructive pulmonary disease, unspecified; K21.9 Gastro-esophageal reflux disease without esophagitis; E03.9 Hypothyroidism, unspecified; Z88.0 Allergy status to penicillin; Z88.8 Allergy status to other drugs, medicaments and biological substances; Z79.82 Long term (current) use of aspirin; Z79.899 Other long term (current) drug therapy
CPT/HCPCS: 36415; 80053; 83735; 83880; 84100; 84484; 85025; 85610; 85730; 93005; 99284-25

== ENCOUNTER 2021-04-01 01:05 | Inpatient (IN) | payer MEDICARE, BC ==
--- NOTE | 2021-04-01 13:29 | EDM.PDOC ---
ED HPI GENERAL MEDICAL PROBLEM - General Chief Complaint: Neuro Symptoms/Deficits Stated Complaint: STROKE Time Seen by Provider: 04/01/21 13:03 Source of Information: Reports: EMS History Limitations: Reports: Altered Mental Status - History of Present Illness INITIAL COMMENTS - FREE TEXT/NARRATIVE: Last known normal was when her daughter called her. [employer] Whe[employer] found her slumped over with left sided weakness, non-verbal other than moaning. EMS responded. Onset: Unknown/Unsure Location: Reports: Face, Upper Extremity, Left, Lower Extremity, Left - Related Data Allergies Allergy/AdvReac Type Severity Reaction Status Date / Time atorvastatin calcium Allergy Itching Verified 06/09/20 21:08 [From Lipitor] Penicillins Allergy Itching Verified 06/09/20 21:08 Home Meds: Home Meds Rosuvastatin Calcium [Crestor] 20 mg PO DAILY 11/27/13 [History] Albuterol Sulfate [Albuterol Sulfate HFA] 2 puff INH Q4H PRN 05/27/20 [History] Aspirin 325 mg PO DAILY 05/27/20 [History] Docusate Sodium [Colace] 100 mg PO DAILY PRN 05/27/20 [History] Furosemide [Lasix] 30 mg PO DAILY 05/27/20 [History] Levothyroxine [Synthroid] 88 mcg PO ACBREAKFAST 05/27/20 [History] Multivitamins/Min/Ca/FA/Iron [Thera-M] 1 each PO DAILY 05/27/20 [History] Non-Formulary Medication [NF Drug] 1 puff INH DAILY 05/27/20 [History] Oxybutynin Chloride [Ditropan Xl] 5 mg PO DAILY 05/27/20 [History] glipiZIDE [Glipizide ER] 2.5 mg PO DAILY 05/27/20 [History] lisinopriL [Lisinopril] 5 mg PO DAILY 05/27/20 [History] carvediloL [Coreg] 25 mg PO BIDMEALS tablet 05/28/20 [Rx] Calcium Carb/Vitamin D3/Vit K1 [Viactiv 650 mg-12.5 Mcg Chew] 1 each PO BID 04/01/21 [History] Digoxin 125 mcg PO DAILY 04/01/21 [History] Fluticasone Furoate [Arnuity Ellipta] 1 puff IH DAILY 04/01/21 [History] Non-Formulary Medication [NF Drug] 1 puff INH DAILY 04/01/21 [History] Potassium Chloride [Klor-Con M20] 1 tab PO BID 04/01/21 [History] Past Medical History HEENT History: Reports: Allergic Rhinitis, Other (See Below) Other HEENT History: Presbyopia Cardiovascular History: Reports: Afib, Aneurysm, Automatic Implantable Cardioverter Defibrillators, CAD, Cardiomyopathy, Heart Failure, High Cholesterol, Hypertension, Pacemaker, Other (See Below) Other Cardiovascular History: Venous hypertension of upper extremity, AV fistula in left arm, bundle branch block, varicose veins, valvular heart disease, bilateral carotid artery stenosis Respiratory History: Reports: COPD, Sleep Apnea, Other (See Below) Other Respiratory History: Nodule - left and right lung Gastrointestinal History: Reports: Diverticulosis, GERD, Other (See Below) Other Gastrointestinal History: Pancreatic abscess Genitourinary History: Reports: Chronic Renal Insuffiency, Urinary Incontinence [employer] History: Reports: None Musculoskeletal History: Reports: Osteoporosis, Other (See Below) Other Musculoskeletal History: pain in joint, pelvic region and thigh; chrnoic pain of right knee, right hip pain, tendinitis in right hip abductors; cramps Neurological History: Reports: Vertigo, Other (See Below) Other Neuro History: Daytime sleepiness Psychiatric History: Reports: None Endocrine/Metabolic History: Reports: Diabetes, Type II, Hyperparathyroidism, Hypothyroidism, Multinodular Thyroid, Obesity/BMI 30+, Osteoporosis, Vitamin D Deficiency, Other (See Below) Other Endocrine/Metabolic History: Hypercalcemia Other Hematologic History: Factor VII deficiency Immunologic History: Reports: None Oncologic (Cancer) History: Reports: Lung, Thyroid Dermatologic History: Reports: Other (See Below) Other Dermatologic History: Callus of foot - Infectious Disease History Infectious Disease History: Reports: C-Difficile - Past Surgical History HEENT Surgical History: Reports: Cataract Surgery, Other (See Below) Other HEENT Surgeries/Procedures: Blepharoplasty upper eyelid, yag capsulotomy right eye Cardiovascular Surgical History: Reports: AICD, Coronary Artery Bypass, Pacer, Other (See Below) Other Cardiovascular Surgeries/Procedures: Cardiac catheterization, angiogram, IR embolization of left chest wall AV fistula Respiratory Surgical History: Reports: Lung Biopsies, Lung Resection GI Surgical History: Reports: Colonoscopy Female Surgical History: Reports: Breast Biopsy, Section, Hysterectomy, Salpingo-Oophorectomy Endocrine Surgical History: Reports: Thyroidectomy Neurological Surgical History: Reports: None Musculoskeletal Surgical History: Reports: None Oncologic Surgical History: Reports: Biopsy of Breast, Lobectomy Dermatological Surgical History: Reports: None ED ROS GENERAL - Review of Systems Review Of Systems: Unable To Obtain Reason Not Obtained: minimally responsive, non-verbal ED EXAM, NEURO - Physical Exam Exam: See Below Exam Limited By: Altered Mental Status General Appearance: Other (minimally responsive, moans) Eye Exam: Bilateral Eye: Normal Inspection Ears: Normal External Exam Nose: Normal Inspection, Normal Mucosa, No Blood Throat/Mouth: Normal Inspection, No Airway Compromise Head Exam: Atraumatic, Normocephalic Neck: Normal Inspection Respiratory/Chest: No Respiratory Distress, Lungs Clear, Normal Breath Sounds, No Accessory Muscle Use Cardiovascular: Regular Rate, Rhythm GI/Abdominal: Normal Bowel Sounds, Soft, No Distention Neurological: Other (will squeeze right hand, move right toes, no movement left side, left facial droop) Back Exam: Normal Inspection Extremities: Normal Capillary Refill Psychiatric: Other (minimally responsive) Skin Exam: Warm, Dry, Intact, Normal Color, No Rash Course - Orders/Labs/Meds Orders: Medication Orders Acetaminophen (Acetaminophen 650 Mg Supp) 650 mg RECTAL Q4H PRN PRN Reason: Mild pain/fever Albuterol (Albuterol 0.083% 2.5 Mg/3 Ml Neb Soln) 2.5 mg NEB Q2H PRN PRN Reason: Shortness of Breath Dextrose/Water (50% Dextrose In Water 50 Ml Syringe) 50 ml IVPUSH ASDIRECTED PRN PRN Reason: Hypoglycemia Glucagon (Glucagon,Human Recombinant 1 Mg Vial) 1 mg IM ASDIRECTED PRN PRN Reason: Hypoglycemia Sodium Chloride (Normal Saline) 1,000 mls @ 25 mls/hr IV ASDIRECTED [place] Last Admin: 04/01/21 16:02 Dose: 25 mls/hr Documented by: FIGUEROA Insulin Human Lispro (Insulin Lispro 100 Units/Ml 3 Ml Vial) 5 unit SUBCUT BIDMEALS PRN PRN Reason: give if glucose over 250 Lorazepam (Lorazepam 2 Mg/Ml Sdv) 0.5 mg IVPUSH Q2H PRN PRN Reason: Anxiety Lorazepam (Lorazepam 2 Mg/Ml Sdv) 0.5 mg IVPUSH Q6H [facility] Last Admin: 04/01/21 15:56 Dose: 0.5 mg Documented by: DEPRSREEDHAR Morphine Sulfate (Morphine 2 Mg/Ml Syringe) 2 mg IVPUSH Q2H PRN PRN Reason: Pain Morphine Sulfate (Morphine 2 Mg/Ml Syringe) 2 mg IVPUSH Q6H [facility] Last Admin: 04/01/21 15:55 Dose: 2 mg Documented by: FIGUEROA Sodium Chloride (Sodium Chloride 0.9% 10 Ml Syringe) 10 ml FLUSH ASDIRECTED PRN PRN Reason: Keep Vein Open Labs: Laboratory Tests 04/01/21 04/01/21 04/01/21 Range/Units 13:14 13:20 13:20 WBC 9.6 (4.0-10.0) x10^3/uL RBC 4.36 (4.00-5.50) x10^6/uL Hgb 13.0 (12.0-16.0) g/dL Hct 40.3 (33.0-47.0) % MCV 92.4 (78.0-93.0) fL MCH 29.8 (26.0-32.0) pg MCHC 32.3 (32.0-36.0) g/dL RDW Coeff of Donna 15.1 H (10.0-15.0) % Plt Count 175 (130-400) x10^3/uL Immature Gran % (Auto) 0.10 (0.00-0.43) % Neut % (Auto) 84.3 H (50.0-80.0) % Lymph % (Auto) 10.4 L (25.0-50.0) % [place] % (Auto) 5.1 (2.0-11.0) % Eos % (Auto) 0.0 (0.0-4.0) % Baso % (Auto) 0.1 L (0.2-1.2) % Neut # (Auto) 8.1 H (1.8-7.7) x10^3/uL Lymph # (Auto) 1.0 (1.0-4.8) x10^3/uL [place] # (Auto) 0.5 (0.0-0.8) x10^3/uL Eos # (Auto) 0.0 (0.0-0.5) x10^3/uL Baso # (Auto) 0.0 (0.0-0.2) x10^3/uL Immature Gran # (Auto) 0.01 (0.00-0.07) x10^3/uL PT (9.9-12.5) SEC INR (2.0-3.5) APTT (25.6-32.8) SEC Sodium 135 L (136-145) mmol/L Potassium 5.2 H (3.5-5.1) mmol/L Chloride 98 (98-107) mmol/L Carbon Dioxide 31 (21-32) mmol/L Anion Gap 11.2 (5-15) mmol/L BUN 22 H (7-18) mg/dL Creatinine 1.0 (0.55-1.02) mg/dL Est Cr Clr Drug Dosing TNP Estimated GFR (MDRD) 53 Glucose 197 H (70-99) mg/dL POC Glucose 191 H (70-99) mg/dL Lactic Acid (0.4-2.0) mmol/L Calcium 9.6 (8.5-10.1) mg/dL Corrected Calcium 10.2 H (8.5-10.1) mg/dL Magnesium 2.1 (1.8-2.4) mg/dL Total Bilirubin 1.4 H (0.2-1.0) mg/dL AST 47 H (15-37) U/L ALT 42 (14-59) U/L Alkaline Phosphatase 81 (46-116) U/L Troponin I High Sens 17 (<=51) ng/L Total Protein 7.3 (6.4-8.2) g/dL Albumin 3.2 L (3.4-5.0) g/dL Globulin 4.1 Albumin/Globulin Ratio 0.78 Urine Color (YELLOW) Urine Appearance (CLEAR) Urine pH (5.0-8.0) Ur Specific Dresser Urine Protein (NEGATIVE) mg/dL Urine Glucose (UA) (NEGATIVE) mg/dL Urine Ketones (NEGATIVE) mg/dL Urine Occult Blood (NEGATIVE) Urine Nitrite (NEGATIVE) Urine Bilirubin (NEGATIVE) Urine Urobilinogen (0.2) EU/dL Ur Leukocyte Esterase (NEGATIVE) Urine RBC (NOT SEEN) /HPF Urine WBC (NOT SEEN) /HPF Ur Squamous Epith Cells (NOT SEEN) /HPF Urine Bacteria (NOT SEEN) /HPF Urine Mucus (NOT SEEN) /LPF SARS CoV-2 RNA Rapid JEAN PIERRE (NEGATIVE) 04/01/21 04/01/21 04/01/21 Range/Units 13:20 13:20 13:22 WBC (4.0-10.0) x10^3/uL RBC (4.00-5.50) x10^6/uL Hgb (12.0-16.0) g/dL Hct (33.0-47.0) % MCV (78.0-93.0) fL MCH (26.0-32.0) pg MCHC (32.0-36.0) g/dL RDW Coeff of Donna (10.0-15.0) % Plt Count (130-400) x10^3/uL Immature Gran % (Auto) (0.00-0.43) % Neut % (Auto) (50.0-80.0) % Lymph % (Auto) (25.0-50.0) % [place] % (Auto) (2.0-11.0) % Eos % (Auto) (0.0-4.0) % Baso % (Auto) (0.2-1.2) % Neut # (Auto) (1.8-7.7) x10^3/uL Lymph # (Auto) (1.0-4.8) x10^3/uL [place] # (Auto) (0.0-0.8) x10^3/uL Eos # (Auto) (0.0-0.5) x10^3/uL Baso # (Auto) (0.0-0.2) x10^3/uL Immature Gran # (Auto) (0.00-0.07) x10^3/uL PT 20.0 H (9.9-12.5) SEC INR 1.8 L (2.0-3.5) APTT 24.7 L (25.6-32.8) SEC Sodium (136-145) mmol/L Potassium (3.5-5.1) mmol/L Chloride (98-107) mmol/L Carbon Dioxide (21-32) mmol/L Anion Gap (5-15) mmol/L BUN (7-18) mg/dL Creatinine (0.55-1.02) mg/dL Est Cr Clr Drug Dosing Estimated GFR (MDRD) Glucose (70-99) mg/dL POC Glucose (70-99) mg/dL Lactic Acid 2.3 H* (0.4-2.0) mmol/L Calcium (8.5-10.1) mg/dL Corrected Calcium (8.5-10.1) mg/dL Magnesium (1.8-2.4) mg/dL Total Bilirubin (0.2-1.0) mg/dL AST (15-37) U/L ALT (14-59) U/L Alkaline Phosphatase (46-116) U/L Troponin I High Sens (<=51) ng/L Total Protein (6.4-8.2) g/dL Albumin (3.4-5.0) g/dL Globulin Albumin/Globulin Ratio Urine Color Yellow (YELLOW) Urine Appearance Clear (CLEAR) Urine pH 5.5 (5.0-8.0) Ur Specific Dresser >=1.030 Urine Protein >=300 H (NEGATIVE) mg/dL Urine Glucose (UA) Negative (NEGATIVE) mg/dL Urine Ketones Trace H (NEGATIVE) mg/dL Urine Occult Blood Small H (NEGATIVE) Urine Nitrite Negative (NEGATIVE) Urine Bilirubin Small H (NEGATIVE) Urine Urobilinogen 1.0 (0.2) EU/dL Ur Leukocyte Esterase Negative (NEGATIVE) Urine RBC 0-5 (NOT SEEN) /HPF Urine WBC 0-5 (NOT SEEN) /HPF Ur Squamous Epith Cells Occasional H (NOT SEEN) /HPF Urine Bacteria Rare (NOT SEEN) /HPF Urine Mucus Moderate H (NOT SEEN) /LPF SARS CoV-2 RNA Rapid JEAN IPERRE (NEGATIVE) 04/01/21 Range/Units 14:10 WBC (4.0-10.0) x10^3/uL RBC (4.00-5.50) x10^6/uL Hgb (12.0-16.0) g/dL Hct (33.0-47.0) % MCV (78.0-93.0) fL MCH (26.0-32.0) pg MCHC (32.0-36.0) g/dL RDW Coeff of Donna (10.0-15.0) % Plt Count (130-400) x10^3/uL Immature Gran % (Auto) (0.00-0.43) % Neut % (Auto) (50.0-80.0) % Lymph % (Auto) (25.0-50.0) % [place] % (Auto) (2.0-11.0) % Eos % (Auto) (0.0-4.0) % Baso % (Auto) (0.2-1.2) % Neut # (Auto) (1.8-7.7) x10^3/uL Lymph # (Auto) (1.0-4.8) x10^3/uL [place] # (Auto) (0.0-0.8) x10^3/uL Eos # (Auto) (0.0-0.5) x10^3/uL Baso # (Auto) (0.0-0.2) x10^3/uL Immature Gran # (Auto) (0.00-0.07) x10^3/uL PT (9.9-12.5) SEC INR (2.0-3.5) APTT (25.6-32.8) SEC Sodium (136-145) mmol/L Potassium (3.5-5.1) mmol/L Chloride (98-107) mmol/L Carbon Dioxide (21-32) mmol/L Anion Gap (5-15) mmol/L BUN (7-18) mg/dL Creatinine (0.55-1.02) mg/dL Est Cr Clr Drug Dosing Estimated GFR (MDRD) Glucose (70-99) mg/dL POC Glucose (70-99) mg/dL Lactic Acid (0.4-2.0) mmol/L Calcium (8.5-10.1) mg/dL Corrected Calcium (8.5-10.1) mg/dL Magnesium (1.8-2.4) mg/dL Total Bilirubin (0.2-1.0) mg/dL AST (15-37) U/L ALT (14-59) U/L Alkaline Phosphatase (46-116) U/L Troponin I High Sens (<=51) ng/L Total Protein (6.4-8.2) g/dL Albumin (3.4-5.0) g/dL Globulin Albumin/Globulin Ratio Urine Color (YELLOW) Urine Appearance (CLEAR) Urine pH (5.0-8.0) Ur Specific Dresser Urine Protein (NEGATIVE) mg/dL Urine Glucose (UA) (NEGATIVE) mg/dL Urine Ketones (NEGATIVE) mg/dL Urine Occult Blood (NEGATIVE) Urine Nitrite (NEGATIVE) Urine Bilirubin (NEGATIVE) Urine Urobilinogen (0.2) EU/dL Ur Leukocyte Esterase (NEGATIVE) Urine RBC (NOT SEEN) /HPF Urine WBC (NOT SEEN) /HPF Ur Squamous Epith Cells (NOT SEEN) /HPF Urine Bacteria (NOT SEEN) /HPF Urine Mucus (NOT SEEN) /LPF SARS CoV-2 RNA Rapid JEAN PIERRE Negative (NEGATIVE) Meds: Medications Generic Name Dose Route Start Last Admin Trade Name Freq PRN Reason Stop Dose Admin Acetaminophen 650 mg 04/01/21 15:07 Acetaminophen 650 Mg Supp RECTAL Q4H PRN Mild pain/fever Albuterol 2.5 mg 04/01/21 15:25 Albuterol 0.083% 2.5 Mg/3 Ml Neb Soln NEB Q2H PRN Shortness of Breath Dextrose/Water 50 ml 04/01/21 15:21 50% Dextrose In Water 50 Ml Syringe IVPUSH ASDIRECTED PRN Hypoglycemia Glucagon 1 mg 04/01/21 15:21 Glucagon,Human Recombinant 1 Mg Vial IM ASDIRECTED PRN Hypoglycemia Sodium Chloride 1,000 mls @ 25 mls/hr 04/01/21 15:45 04/01/21 16:02 Normal Saline IV 25 mls/hr ASDIRECTED [place] Administration Insulin Human Lispro 5 unit 04/01/21 18:00 Insulin Lispro 100 Units/Ml 3 Ml Vial SUBCUT BIDMEALS PRN give if glucose over 250 Lorazepam 0.5 mg 04/01/21 15:16 Lorazepam 2 Mg/Ml Sdv IVPUSH Q2H PRN Anxiety Lorazepam 0.5 mg 04/01/21 16:00 04/01/21 15:56 Lorazepam 2 Mg/Ml Sdv IVPUSH 0.5 mg Q6H [place] Administration Morphine Sulfate 2 mg 04/01/21 15:18 Morphine 2 Mg/Ml Syringe IVPUSH Q2H PRN Pain Morphine Sulfate 2 mg 04/01/21 16:00 04/01/21 15:55 Morphine 2 Mg/Ml Syringe IVPUSH 2 mg Q6H [place] Administration Sodium Chloride 10 ml 04/01/21 15:07 Sodium Chloride 0.9% 10 Ml Syringe FLUSH ASDIRECTED PRN Keep Vein Open Discontinued Medications Generic Name Dose Route Start Last Admin Trade Name Seema PRN Reason Stop Dose Admin Lorazepam 0.5 mg 04/01/21 14:59 Lorazepam 2 Mg/Ml Sdv IVPUSH 04/01/21 15:00 STAT ONE Lorazepam 1 mg 04/01/21 15:30 Lorazepam 2 Mg/Ml Sdv IVPUSH Q6H [place] Morphine Sulfate 2 mg 04/01/21 14:59 Morphine 2 Mg/Ml Syringe IM 04/01/21 15:00 ONETIME ONE - Radiology Interpretation CT Results Date: 04/01/21 - Re-Assessments/Exams Free Text/Narrative Re-Assessment/Exam: 04/01/21 14:05 Pt arrived at 1303 via EMS and went straight from ambulance to CT scan. 1325, [place] was called. Dr. Galvan asked for imaging to be sent to [facility]. Radiologist from [facility] read it: Large Complete Right Middle Cerebral Subacute Infarction. While awaiting return call from Dr. Galvan, daughter was here and called her sister who stated someone had called the pt yesterday as late as 1800 and she responded to call. Also the sisters informed provider and RN that pt wishes to be DNR. Called and updated Dr. Galvan with last known normal, but he states that a neurosurgery intervention would not be beneficial and that a discussion regarding Palliative Care should ensue. Dr. Villagomez updated regarding pt's condition, stated she wants her to go to Palliative Care at [facility]. Awaiting call from Dr. Ferrera, palliatvie care at [facility]. 04/01/21 14:38 Dr. Ferrera states that pt should stay here as her life expectancy is only days and there is no benefit to sending her to [facility]. He gave morphine and lorazepam recommendations and stated he is available for guidance if needed. Dr. Villagomez notified of his recommendations, states she is coming in to admit patient. Daughter Zaynab at bedside, kept updated. 04/01/21 15:00 Dr. Villagomez here. Morphine and lorazepam ordered. Departure - Departure Time of Disposition: 15:43 Disposition: Admitted As Inpatient 67 Condition: Critical Clinical Impression: Cerebrovascular accident (CVA) Qualifiers: Precerebral and cerebral artery: middle cerebral artery Laterality of affected vessel: right - Discharge Information
--- NOTE | 2021-04-01 13:36 | CT ---
[id number] CT/CT Head Stroke Protocol Exam: CT Head Stroke Protocol Clinical Data: LEFT-SIDED WEAKNESS COMPARISON: NO PREVIOUS SIMILAR EXAM IS AVAILABLE FINDINGS: There is a subacute infarction involving the entirety of the right middle cerebral distribution. There is effacement of sulci There is no midline shift yet seen There is no obvious hemorrhage There appears to be a right side hyperdense middle cerebral artery sign Report called at time of dictation. IMPRESSION: LARGE COMPLETE RIGHT MIDDLE CEREBRAL SUBACUTE INFARCTION Raheem Blue MD 04/01/21 1279 Thank you for allowing us to participate in the care of your patient.
[2021-04-01 13:40] LABS: PTT,PARTIAL THROMBOPLSTIN TIME 24.7 SEC (25.6-32.8)
[2021-04-01 13:46] LABS: ANION GAP 11.2 mmol/L (5-15); CHLORIDE,CL 98 mmol/L (98-107); SODIUM,NA 135 mmol/L (136-145)
[2021-04-01] MEDS ORDERED: LORazepam 2 MG/ML SDV IVPUSH ONE (14:59)
[2021-04-01] MEDS ORDERED: Morphine 2 MG/ML SYRINGE IM ONE (14:59)
[2021-04-01] MEDS ORDERED: Acetaminophen 650 MG Supp RECTAL PRN (15:07)
[2021-04-01] MEDS ORDERED: Sodium Chloride 0.9% 10 ML Syringe FLUSH PRN (15:07)
[2021-04-01] MEDS ORDERED: Morphine 2 MG/ML SYRINGE IVPUSH PRN (15:18)
[2021-04-01] MEDS ORDERED: 50% Dextrose in Water 50 ML Syringe IVPUSH PRN (15:21)
[2021-04-01] MEDS ORDERED: Glucagon,Human Recombinant 1 MG Vial IM PRN (15:21)
[2021-04-01] MEDS ORDERED: Albuterol 0.083% 2.5 MG/3 ML Neb Soln NEB PRN (15:25)
[2021-04-01] MEDS ORDERED: LORazepam 2 MG/ML SDV IVPUSH SCH (15:30)
[2021-04-01] MEDS ORDERED: Sodium Chloride 0.9% 1,000 ML IV SCH (15:45)
[2021-04-01] MEDS: Morphine 2 MG/ML SYRINGE IVPUSH SCH ×2 (15:55→21:32)
[2021-04-01] MEDS: LORazepam 2 MG/ML SDV IVPUSH SCH ×2 (15:56→21:33)
[2021-04-01] MEDS ORDERED: Insulin Lispro 100 Units/ML 3 ML Vial SUBCUT PRN (18:00)
[2021-04-01] MEDS: Furosemide 20 MG/2 ML VIAL IV PRN (19:48)
[2021-04-02] MEDS: LORazepam 2 MG/ML SDV IVPUSH SCH ×4 (03:26→21:13)
[2021-04-02] MEDS: Morphine 2 MG/ML SYRINGE IVPUSH SCH ×4 (03:31→21:21)
--- NOTE | 2021-04-02 07:10 | HP ---
CHIEF COMPLAINT: Stroke. HISTORY OF PRESENT ILLNESS: The patient is an 86-year-old female who was found today by [employer] people hemiplegic on one side. 911 was called, and she was brought to the emergency room. To note, the last time anybody had talked to the patient was on 03/31/2021 at 6 p.m., she seemed tired. The patient has never previously had stroke. She has had multiple other health problems. Patient right now is minimally responsive. She was seen in the emergency department by Mercy Jo, nurse practitioner. She consulted with [facility] at [facility] occupational health technician. There was no intervention that could be done as she had a large right MCA stroke and that she should just be kept comfortable. The patient does have advance directives, which designates her daughter, Judith Guerrier, as her power of employment attorney but do not talk about any other healthcare directives. To note, the patient does have a cancer diagnosis as well as has significant heart failure problems. The patient is not able to verbally respond to us right now. MEDICATIONS: She is currently on are digoxin 0.25 mg 1 pill daily, just started on 03/28/2021; Arnuity 1 puff daily; oxybutynin extended release 5 mg 1 pill daily; glipizide extended release 2.5 mg 1 pill daily; carvedilol 25 mg 1 pill twice a day; furosemide 20 mg 1 pill daily; potassium chloride 20 mEq 1 pill daily; lisinopril 10 mg, she takes half a pill once a day; albuterol 2 puffs every 4 hours as needed for shortness of breath; Anoro 62.5/25 one puff daily, aspirin 325 one pill daily, levothyroxine 88 mcg 1 pill daily, Crestor 20 mg 1 pill daily, docusate 100 mg 1 pill daily as needed, and multivitamin 1 pill daily. ALLERGIES: To Lipitor, penicillins. PAST MEDICAL HISTORY: The patient had factor VII deficiency. She has iron- deficiency anemia. She has had lung cancer, middle lobe of the right lung, adenocarcinoma since 10/2019. Malignant neoplasm of bronchus of the right lower lobe since 11/04/2019. Bilateral carotid artery stenosis, varicose veins, osteoporosis, and papillary thyroid cancer diagnosed 05/19/2018. She has had hyperparathyroidism, obesity, and nocturnal hypoxemia since 2017. She has had nodule of left lung in 07/2016. Thyroid nodule, benign positional vertigo. Nodule of right lung since 2013. She had a previous Clostridium difficile colitis in 2013, diverticulosis, and paroxysmal atrial fibrillation. The patient has had AV fistula on 12/30/2012 on a left anterior chest angiogram with left subclavian vein occlusion and multiple large branches off the left subclavian. She has type 2 diabetes mellitus, not on insulin. She had a pancreatic abscess in 2011 and treated at [facility] for this with percutaneous drainage, was on TPN. Vitamin D deficiency, emphysema. Chronic systolic heart failure, last echocardiogram in 2018, ejection fraction 29% at that time. She has had dilated cardiomyopathy. She has had an abdominal aortic aneurysm without rupture noted in 2004, it was 3.6 cm in size in 2018. She has had coronary artery disease with MA with PFO, CABG x3 in 1993, negative Cardiolite, and has left bundle branch block. Last angiogram was in 2006, 100% LAD stenosis with graft patent, mild circumflex lesions, second obtuse 100% block, RCA 100% stenosis of graft to LAD, and 75% stenosis to RCA ?_ 100% stenosis. She has had gastroesophageal reflux disease. She has had a myocardial infarction. She has had arthritis, cataracts, pain of knee, chronic allergic rhinitis, and chronic kidney disease stage 2. She has had daytime sleepiness. Hypertension, . She has had Mycobacterium avium complex treatment recently, hypothyroidism, hypoxemia, and ICD defibrillator. She has had mixed incontinence, hypercholesterolemia. Her last echocardiogram here for valvular heart disease on 10/23/2020, ejection fraction was 30% at that time with mild mitral regurgitation, mild aortic regurgitation, pulmonary artery pressure of 45, and [id number] tricuspid regurgitation. She has venous hypertension of her upper extremity. PAST SURGICAL HISTORY: She has had endobronchial bronchoscopy on 09/13/2020, thyroidectomy 08/11/2018, and YAG capsulotomy 03/28/2016. She has had a CABG in the past. Most recent left lung biopsy in early 03/2021. She has had an appendectomy, breast biopsy, blepharoplasty, , eye surgery, hysterectomy, ICD device was in 2009, and removal of lung. She has had a pacemaker. She has had thyroidectomy. IMMUNIZATIONS: She has had pneumococcal 13 on 04/04/2014; pneumococcal 23 on 06/19/2018, 12/29/2004, and 03/15/2002. Tetanus on 04/07/2009, 09/03/2013. Zostavax on 10/27/2011. Shingrix on 06/19/2018 and 12/23/2017. FAMILY MEDICAL HISTORY: Father has had liver metastasis, cirrhosis. Mother had dementia Alzheimer as well as heart disease, macular degeneration, and hyperlipidemia. Brother has lung cancer. Daughter has had endometrial cancer and diabetes. Sons had a heart attack. SOCIAL HISTORY: Patient is . Her daughter, Judith Guerrier, is her designated power of employment attorney. The patient does not currently smoke. She got 12th grade education. 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 She had smoked a 70-[id number]-[id number] history but quit in 1993. Alcohol use, not. REVIEW OF SYSTEMS: Unobtainable as the patient was not able to give any history. It is known she has had recent problems with fluid retention in her lower legs. PHYSICAL EXAMINATION: Vital Signs: 126/90s for blood pressure, her pulse is like 80, respiratory rate is 12, in mid 90s on 3 L, and 98 temperature. Skin: Pale, warm, and dry. HEENT: Her pupils, her left is dilated. Right does react to light. Pharynx is dry. Heart: Regular rate. Lungs: Clear to auscultation. Abdomen: Soft. Neurologic: The patient is lethargic. She will at times squeeze with her right hand as well as move her left foot. Patient does not speak but does mumble, mother. LABORATORY DATA: Her lab shows a white blood cell count 9.6, hemoglobin 13.0, and platelets 175 with 83 segs, 10 lymphocytes. INR is 1.8. Sodium is 135, potassium 5.2, creatinine 1.0, BUN 22, GFR is 53, glucose 197, lactic acid 2.3, calcium 9.6, magnesium 2.1, total bilirubin 1.4, AST 47, ALT 42, troponin 17, and albumin 3.2. Urine with specific gravity greater than 1.030, protein greater than 300, occasional epith cells, and occasional mucus. COVID test was negative. The patient had a CT of her head which showed subacute infarct involving the entirety of the right middle cerebellar distribution. There is effacement of sulci. No midline shift. No obvious hemorrhage. Right side, hypodense middle cerebral artery sign. SUMMARY OF THE EMERGENCY ROOM COURSE: Mid-level did contact [facility] as stated in history of present illness about possibility of transfer care or in light of the possible need for tube feedings. It was not felt appropriate that the patient should just be kept here on comfort cares. IMPRESSION: 1. 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 Aphasia. 3. Hypertension. 4. Type 2 diabetes mellitus. 5. History of multiple lung cancers. 6. Factor VII deficiency. 7. Coronary artery disease. 8. Chronic kidney disease stage 3. 9. Abdominal aortic aneurysm. 10.Carotid artery disease. 11.History of thyroid cancer. PLAN: The patient will be admitted to acute care. She will be on comfort cares. The patient's prognosis is very grim. We will offer scheduled lorazepam as well as p.r.n. lorazepam. We will offer scheduled morphine as well as p.r.n. morphine. We will offer p.r.n. albuterol. The patient's blood sugars will be covered with short-acting insulin. We will just do maintenance normal saline IV to keep open, and it is not intended the patient to have prolonged IV fluids nor any sort of tube feeding right now. Did tell daughter, it will take within the next 72 hours to declare her true deficits. However, with her large area that is involved with her scanning that she most likely will not survive current event. We will offer Spiritual Care Services as well as Rent Collector to assist the patient. The patient will not be placed on DVT prophylaxis as she has already a previous stroke and a blood disorder. GM04/01/2021 15:51:36 MODL: 04/01/2021 18:01:44 /[id number] SONIA
[2021-04-02] MEDS: Furosemide 20 MG/2 ML VIAL IV PRN ×2 (10:18→16:30)
--- NOTE | 2021-04-02 10:51 | PN ---
Progress Note for MAIKEL DENT Date: 04/02/2021 Room #: VM.222 SUBJECTIVE: Since the patient has been admitted, she has been fairly unresponsive. She did require some Lasix during the evening. This morning, she has been more unresponsive, does moan a little bit. She has been responding to pain per nurses. OBJECTIVE: Vital Signs: Her temperature max was 36.7, now she is down to 36.2, blood pressure is 113/58, respiratory rate 18, saturations are 93. She is on 3 L. General: Patient does not respond to my voice, but will respond to pain. Heart: Regular rate. Lungs: Have inspiratory crackles bilaterally. Abdomen: Soft. Neurologic: The patient is hemiparetic on her left side but her right hand is withdrawn. IMPRESSION: 1. Acute right middle cerebral artery stroke with severe deficitst with left hemiplegia, terminal 2. Aphasia. 3. Lung cancer. 4. Thyroid cancer. 5. Coronary artery disease. 6. Cardiomyopathy. 7. Congestive heart failure. 8. Type II DM. PLAN: We will continue patient on palliative care with scheduled morphine as well as lorazepam scheduled and p.r.n. as well as p.r.n. morphine. We will also give her p.r.n. Lasix to help with the fluid. The patient's blood sugars are being loosely monitored. Her marketing senior recruiter visited her this morning. GM04/02/2021 10:19:09 MODL: 04/02/2021 10:44:09 /[id number] MTDD
[2021-04-03] MEDS: Furosemide 20 MG/2 ML VIAL IV PRN ×2 (01:03→05:45)
[2021-04-03] MEDS: LORazepam 2 MG/ML SDV IVPUSH PRN ×2 (01:03→05:45)
[2021-04-03] MEDS: LORazepam 2 MG/ML SDV IVPUSH SCH ×2 (03:49→09:49)
[2021-04-03] MEDS: Morphine 2 MG/ML SYRINGE IVPUSH SCH ×2 (03:49→09:48)
[2021-04-03] MEDS: Atropine 1% Ophth Soln 5 ML BOTTLE SL PRN ×2 (06:35→12:10)
[2021-04-03 06:57] VITALS: BP 119/67; PULSE 98
--- NOTE | 2021-04-03 08:47 | PN ---
Progress Note for MAIKEL DENT Date: 04/03/2021 Room #: .222 SUBJECTIVE: The patient has been still unresponsive, slightly restless. She has had some increased auditory sounds with pulmonary congestion, secretions. OBJECTIVE: Vital Signs: Her temperature is 36.8, pulse 98, blood pressure is 119/67, sats are 88% on 3 L, respiratory rate is 14. General: The patient is unresponsive except for pain. She has audible gurgles. Heart: Regular rate and rhythm. Lungs: Have some congestion. Neurologic: The patient is hemiparetic on her left side. IMPRESSION: 1. Massive right middle cerebral artery stroke. 2. Heart failure. 3. Type 2 diabetes mellitus. 4. Lung cancer. 5. Thyroid cancer. PLAN: We will continue palliative cares with keeping the patient comfortable with morphine, lorazepam scheduled on p.r.n., as well as p.r.n. Lasix and p.r.n. insulin. Anticipate the patient to pass within the next 1 to 2 days. Will stop the IV fluids. GM04/03/2021 08:23:31 MODL: 04/03/2021 08:39:18 /[id number] MTDPelon
--- NOTE | 2021-04-03 16:49 | DISCH ---
PRIMARY DIAGNOSES: 1. Massive right middle cerebral artery stroke with left hemiplegia. 2. Aphasia. 3. Coronary artery disease. 4. Hypertension. 5. Factor V Leiden deficiency. 6. Type 2 diabetes mellitus. 7. Congestive heart failurem chronic diastolic 8. Lung cancers, muliple. 9. Cardiomyopathy, 10. COPD SUMMARY OF EMERGENCY ROOM COURSE: The patient was brought in after being found unresponsive by a [employer] worker on 04/01/2021. The patient was last known well on 03/31/2021. At this time, the patient was unresponsive except for pain. She was hemiparetic on her left side, and when seen in the emergency department, had a head CT which showed a massive right MCA stroke for which Neurology and Neurosurgery were contacted and there was nothing that could be done for patient due to being out for time window and the prognosis of the patient was extremely poor and it was felt that she should be placed on palliative care. DIAGNOSTIC DATA: Her laboratory data on admission showed white blood cell count 9.6, hemoglobin 13.0, platelets 175. Sodium 135, potassium 5.2, creatinine 1.0, BUN 22, GFR 53, glucose 197, lactic acid 2.3, magnesium 2.1. LFTs normal. Troponin 17. Albumin 3.2. Urine came back normal. COVID test was negative. CT of head showed subacute infarct involving entirety of right MCA distribution. There is effacement of sulci. There was no midline shift. No obvious hemorrhage. Right-sided hypodense middle cerebral artery sign. SUMMARY OF HOSPITAL COURSE: Patient was in the hospital from 04/01/21 until 04/03/21.The patient was placed on palliative care. In the hospital, she had scheduled morphine as well as p.r.n. morphine, scheduled lorazepam with p.r.n. morphine. She required p.r.n. Lasix. She had a Dillon catheter placed for comfort. She had her daughter present, Judith who was aware of the grave prognosis of the patient, just wanted to keep patient comfortable. The patient did start to have more respiratory secretions by 04/03/2021 and so atropine was ordered as well. The patient quietly on 04/03/2021 at 12:20 and then to note the patient never did regain consciousness while she was on comfort care. She was also seen by her condenser cleaner as well for last rites prior to her passing away. GM04/03/2021 15:35:52 MODL: 04/03/2021 16:19:06 /[id number] MTDD
== END 2021-04-03 12:20 | disposition expired | DRG 951 ==
LOC: VM.ED 01:05 → VM.MS 15:07
PROVIDERS: ADMIT Family Medicine; ATTEND Family Medicine
DX: I63.9 Cerebral infarction, unspecified (principal); Z51.5 Encounter for palliative care; I63.511 Cerebral infarction due to unspecified occlusion or stenosis of right middle cerebral artery; G81.94 Hemiplegia, unspecified affecting left nondominant side; D68.51 Activated protein C resistance; D68.2 Hereditary deficiency of other clotting factors; I50.32 Chronic diastolic (congestive) heart failure; I50.9 Heart failure, unspecified; I13.0 Hypertensive heart and chronic kidney disease with heart failure and stage 1 through stage 4 chronic kidney disease, or unspecified chronic kidney disease; C34.31 Malignant neoplasm of lower lobe, right bronchus or lung; I42.0 Dilated cardiomyopathy; R47.01 Aphasia; Z66 Do not resuscitate; I25.10 Atherosclerotic heart disease of native coronary artery without angina pectoris; J44.9 Chronic obstructive pulmonary disease, unspecified; I48.91 Unspecified atrial fibrillation; H52.4 Presbyopia; E78.00 Pure hypercholesterolemia, unspecified; G47.30 Sleep apnea, unspecified; K21.9 Gastro-esophageal reflux disease without esophagitis; M81.0 Age-related osteoporosis without current pathological fracture; E11.22 Type 2 diabetes mellitus with diabetic chronic kidney disease; E03.9 Hypothyroidism, unspecified; E55.9 Vitamin D deficiency, unspecified; N18.30 Chronic kidney disease, stage 3 unspecified; Z20.822 Contact with and (suspected) exposure to COVID-19; R29.727 NIHSS score 27; R32 Unspecified urinary incontinence; J30.9 Allergic rhinitis, unspecified; I08.3 Combined rheumatic disorders of mitral, aortic and tricuspid valves; D50.9 Iron deficiency anemia, unspecified; I65.23 Occlusion and stenosis of bilateral carotid arteries; E66.9 Obesity, unspecified; E21.3 Hyperparathyroidism, unspecified; I48.0 Paroxysmal atrial fibrillation; K57.90 Diverticulosis of intestine, part unspecified, without perforation or abscess without bleeding; Z95.1 Presence of aortocoronary bypass graft; Z95.0 Presence of cardiac pacemaker; I25.2 Old myocardial infarction; Z88.8 Allergy status to other drugs, medicaments and biological substances; Z98.49 Cataract extraction status, unspecified eye; Z90.710 Acquired absence of both cervix and uterus; Z88.0 Allergy status to penicillin; Z79.82 Long term (current) use of aspirin; Z79.899 Other long term (current) drug therapy; Z79.84 Long term (current) use of oral hypoglycemic drugs; Z79.890 Hormone replacement therapy; Z95.810 Presence of automatic (implantable) cardiac defibrillator; Z90.49 Acquired absence of other specified parts of digestive tract; Z85.850 Personal history of malignant neoplasm of thyroid; Z85.118 Personal history of other malignant neoplasm of bronchus and lung; Z80.1 Family history of malignant neoplasm of trachea, bronchus and lung; Z80.0 Family history of malignant neoplasm of digestive organs; Z80.8 Family history of malignant neoplasm of other organs or systems; Z83.3 Family history of diabetes mellitus
CPT/HCPCS: 36415; 70450; 80053; 81001; 82947; 83605; 83735; 84484; 85025; 85610; 85730; 99285-25; A9270-GY; J1940; J2060; J2270; J7030; U0002